=== PATIENT | male | born 1960 | race Caucasian/White ===

== ENCOUNTER 2024-03-20 10:18 | Emergency (ER) | payer OTHER, SELFPAY ==
[2024-03-20 10:22] VITALS: BP 161/94; PULSE 114; RESP 16; TEMP 36.4; O2SAT 94
--- NOTE | 2024-03-20 10:40 | ED.WOUNDLAC ---
HPI - Wound/Laceration General Chief Complaint: Wound/Laceration Stated Complaint: laceration right index Time Seen by Provider: 03/20/24 10:20 History of Present Illness HPI narrative: 63-year-old male presents emergency department with family at bedside for laceration to his right 2nd digit that occurred prior to arrival. Patient states he was cutting celery with a mandoline any cut the tip of his finger off. He is not anticoagulated. Denies other injuries. Last Tdap unknown. Related Data Allergies Allergy/AdvReac Type Severity Reaction Status Date / Time No Known Allergies Allergy Verified 03/20/24 10:33 Review of Systems Review of Systems: All systems reviewed & are unremarkable except as noted in HPI and below Exam Narrative: GENERAL: Well-appearing, well-nourished, and in no acute distress. HEAD: Normocephalic, atraumatic. EYES: EOMI. ENT: Nares clear, no rhinorrhea or epistaxis. Mucous membranes moist. NECK: Supple. CHEST: Clear to auscultation. No respiratory distress. HEART: Regular rate and rhythm. No murmur heard. Normal peripheral pulses. ABDOMEN: Soft, nontender, nondistended, normal active bowel sounds. EXTREMITIES: Normal range of motion. No edema. SKIN: Skin avulsion to the distal aspect of the right 2nd digit, no bone avulsion, no muscle or tendon visualized. Active bleeding. full range of motion of finger, cap refill less than 2. Sensation intact. NEURO: No focal deficits. Alert and oriented x3 Course Vital Signs Vital signs: Vital Signs Temperature 97.6 F 03/20/24 10:22 Pulse Rate 114 H 03/20/24 10:22 Respiratory Rate 16 03/20/24 10:22 Blood Pressure 161/94 H 03/20/24 10:22 Pulse Oximetry 94 03/20/24 10:22 Oxygen Delivery Room Air 03/20/24 10:22 Temperature 97.6 F 03/20/24 10:22 Pulse Rate 114 H 03/20/24 10:22 Respiratory Rate 16 03/20/24 10:22 Blood Pressure 161/94 H 03/20/24 10:22 Pulse Oximetry 94 03/20/24 10:22 Oxygen Delivery Room Air 03/20/24 10:22 MDM - Wound/Laceration MDM Narrative Medical decision making narrative: 63-year-old male presents to the emergency department for a skin avulsion to the right 2nd digit that occurred prior to arrival and a mandoline. Triage vitals with hypertension and tachycardia, patient does appear anxious. Repeat HR normalized. Exam is significant for skin avulsion to the right 2nd digit, no deep structures or foreign bodies visualized. He is neurovascularly intact. It is actively bleeding. Skin tourniquet used and skin glue applied over the avulsion with successful hemostasis. Tourniquet removed and finger pinked up quickly. Tdap updated in the ED. discussed wound care and follow-up with PCP. Discussed strict ED return precautions. He and his family are agreeable with the plan verbalized understanding. Discharged in stable condition. Discharge Plan Discharge Clinical Impression: Avulsion of skin Patient Disposition: Home, Self-Care Condition: Stable Instructions: Antibiotic Form, Skin Avulsion (ED) Additional Instructions: You were evaluated in the emergency department for avulsion to your finger. Please change dressings twice daily until you develop you stable scab. Return to the emergency department if you develop surrounding redness, drainage, fever, or other concerning symptoms. Follow-up with her PCP. Follow-up/Referrals: PHYSICIAN,WEATHERIZATION AND HOUSING INSPECTOR [Non-Staff] - Ilya Santoro MD [Physician] - 1 Week
[2024-03-20 10:45] VITALS: BP 161/94; PULSE 91; RESP 15; O2SAT 95
[2024-03-20] MEDS: TETANUS,DIPHTHERIA,AC PERTUSSIS ADULT (0.5 ML) BOOSTRIX IM (10:55)
[2024-03-20 11:00] VITALS: BP 129/83; PULSE 95; RESP 15; TEMP 36.4; O2SAT 96
== END 2024-03-20 11:03 | disposition home or self-care (01) ==
PROVIDERS: Emergency Provider Physician Assistant
DX: S61.210A Laceration without foreign body of right index finger without damage to nail, initial encounter (principal); Z23 Encounter for immunization; W27.4XXA Contact with kitchen utensil, initial encounter; Y93.G1 Activity, food preparation and clean up
CPT/HCPCS: 11730; 12001; 90471; 90715; 99282